=== PATIENT | male | born 1955 | race Hispanic/Latino ===

== ENCOUNTER 2016-12-19 20:28 | Emergency (ER) | payer MEDICARE ==
[~2016-12-19] VITALS: Ht 167.6 cm; Wt 61.4 kg
[~2016-12-19 20:28] MED LIST: AMT50T PO; ATEN25TA PO; CITA40TA13 PO; FLUO15CR TOPICAL; GABA-502 PO; MS15TCR PO
[2016-12-19 20:52] VITALS: BP 165/79; PULSE 65; RESP 20; O2SAT 95
--- NOTE | 2016-12-19 21:01 | ED.REPORT ---
HPI-Extremity Problem Upper Date of Service Dec 19, 2016 ED Provider: Demetrio Hadley MD Pt is a 61 y.o. male who presents to the ED c/o a ring stuck on his right ring finger onset 1 month ago. Pt was seen by the boiler technician and his ring was cut off. Pt eloped before he was seen and evaluated by the MD. Nursing Notes Stated Complaint: RING STUCK ON FINGER, UNABLE TO REMOVE Chief Complaint: Extremity Trauma Nursing Notes Reviewed: Yes Allergies: Coded Allergies: lisinopril (Verified Allergy, Severe, FACIAL SWELLING, 06/24/16) Scheduled Amitriptyline (Amitriptyline) 50 Mg Tab 50 MG PO HS Atenolol (Atenolol) 25 Mg Tablet 25 MG PO DAILY Citalopram (Citalopram) 40 Mg Tablet 40 MG PO DAILY Fluocinonide 0.05% Cream (Fluocinonide 0.05% Cream) 15 Gm Cream..g. 1 APPLIC TOPICAL BID Gabapentin (Gabapentin) 300 Mg Capsule 900 MG PO TID Morphine Sulfate ER (MS Contin) 15 Mg Tablet.er 15 MG PO BID POST OP General Time Seen by MD: 20:59 Chief Complaint Finger injury right 4 Hx Obtained From: Patient Arrived By: Walk-in Onset Occurred: More than a week ago... (1 month) Symptom Duration: Since onset Past Medical History Past Medical History Notes: Reviewed with pt Past Medical History hypertension Past Surgical History neck x2 bilateral knees Family History noncontributory Smoking History Never Smoker Social History none reported Other Social History: Lives alone Ambulatory Status Independent Review of Systems Object stuck on right ring finger. Complete sys rev & neg: except as marked. Physical Exam Pt eloped from facility before physical exam could be performed. Initial Vital Signs Vital Signs (First) Date Time Temp Pulse Resp B/P Pulse Ox O2 Delivery O2 Flow Rate FiO2 12/19/16 20:52 36.7 65 20 165/79 95 Initial VS: Reviewed Re-Eval/Medical Decision Med Decision/Clinical Course Pt is a 61 y.o. male who presents to the ED c/o a ring stuck on his right ring finger onset 1 month ago. Pt was seen by the boiler technician and his ring was cut off. Pt eloped before he was seen and evaluated by the MD. Re-Evaluation/Progress : Time of Eval: 22:10 Re-Evaluation/Progress Note: Pt is not present and has eloped from facility. Discharge & Departure Impression: Primary Impression: Minor injury of finger Encounter type: initial encounter Laterality: right Qualified Code: S69.91XA - Unspecified injury of right wrist, hand and finger(s), initial encounter Additional Impression: History of elopement from health care facility Disposition: AGAINST MEDICAL ADVICE (Pt eloped ) Referrals: Kathryn Foster (PCP) Uli Attestation Portions of this note were transcribed by Duane Trotter. I, Dr. Hadley personally performed the history, physical exam and medical decision-making; I reviewed and confirmed the accuracy of the information in the transcribed note. Signed by: Uli Navarrete, 12/19/16 and [id number]. copies to: Kathryn Foster Beck O MD Dec 19, 2016 21:00 DUANE TROTTER Dec 19, 2016 22:10
== END 2016-12-19 22:24 | disposition left against medical advice (07) ==
LOC: SED 20:28
DX: S60.454A Superficial foreign body of right ring finger, initial encounter (principal); W49.04XA Ring or other jewelry causing external constriction, initial encounter; Y92.009 Unspecified place in unspecified non-institutional (private) residence as the place of occurrence of the external cause; Y93.89 Activity, other specified; Y99.8 Other external cause status; I10 Essential (primary) hypertension; Z91.89 Other specified personal risk factors, not elsewhere classified; Z88.8 Allergy status to other drugs, medicaments and biological substances